=== PATIENT | male | born 1960 | race Caucasian/White ===

== ENCOUNTER 2019-12-07 12:11 | Emergency (ER) | payer BC, OTHER ==
[2019-12-07 12:50] LABS: Absolute Lymphocytes (CBC) 2.4 K/uL (0.7-4.9); Basophils % 1.3 % (0-1.3); Hematocrit 45.8 % (39.6-49.0); Lymphocytes % 24.7 % (15.3-44.8); MPV 9.5 fL (7.6-11.3); RBC Red Blood Cell Count 5.57 M/uL (4.33-5.43)
[2019-12-07 13:19] LABS: Albumin 3.7 g/dL (3.4-5.0); Bilirubin Total 0.7 mg/dL (0.2-1.0); Potassium 3.9 mmol/L (3.5-5.1); Protein, Total 7.8 g/dL (6.4-8.2)
--- NOTE | 2019-12-07 13:28 | EDPHYS ---
Physician Documentation [facility] Name: Robbi Mloina Age: 59 yrs Sex: Male : 1960 Arrival Date: 12/07/2019 Time: 12:16 Bed 24 Private MD: ED Physician Hans Srivastava HPI: 12/07 12:33 This 59 yrs old Male presents to ER via Ambulatory with complaints of Blood ps1 Pressure Problem. 12:[address] Santiago. Patient has not taken his BP/DM meds for a long time. Could not ps1 get an appointment after taking home BP >200 systolic. Sent to ED for unscheduled care. No symptoms. Needs a refill. . Historical: - Allergies: 12:21 No Known Allergies; ll1 - Home Meds: 12:55 aspirin 81 mg Oral TbEC 1 tab once daily [Active]; rosuvastatin 5 mg oral tab 1 tab ss twice a day [Active]; - PMHx: 12:21 Hypertension; ll1 - PSHx: 12:21 Hernia repair; Cholecystectomy; ll1 - Immunization history:: Adult Immunizations up to date, Last tetanus immunization: up to date. - Social history:: Smoking status: Patient denies any tobacco usage or history of. ROS: 12:33 Constitutional: Negative for fever, chills, and weight loss, Cardiovascular: Negative ps1 for chest pain, palpitations, and edema, Respiratory: Negative for shortness of breath, cough, wheezing, and pleuritic chest pain, Abdomen/GI: Negative for abdominal pain, nausea, vomiting, diarrhea, and constipation, MS/Extremity: Negative for injury and deformity, Neuro: Negative for headache, weakness, numbness, tingling, and seizure. Exam: 12:33 Constitutional: This is a well developed, well nourished patient who is awake, alert, ps1 and in no acute distress. Head/Face: Normocephalic, atraumatic. Eyes: Pupils equal round and reactive to light, extra-ocular motions intact. Lids and lashes normal. Conjunctiva and sclera are non-icteric and not injected. Chest/axilla: Normal chest wall appearance and motion. Nontender with no deformity. No lesions are appreciated. Cardiovascular: Regular rate and rhythm. No gallops, murmurs, or rubs. Normal PMI, no JVD. No pulse deficits. Respiratory: Lungs have equal breath sounds bilaterally, clear to auscultation and percussion. No rales, rhonchi or wheezes noted. No increased work of breathing, no retractions or nasal flaring. MS/ Extremity: Pulses equal, no cyanosis. Neurovascular intact. Full, normal range of motion. Neuro: Awake and alert, GCS 15, oriented to person, place, time, and situation. Cranial nerves II-XII grossly intact. Sensory grossly intact. Psych: Awake, alert, with orientation to person, place and time. Behavior, mood, and affect are within normal limits. Vital Signs: 12:17 Pulse 78; Resp 17; Temp 98.3; Pulse Ox 99% ; Weight 112.94 kg; Height 6 ft. (182.88 ll1 cm); Pain 0/10; 12:21 BP 197 / 122; ll1 12:29 BP 194 / 108; Pulse 81; Pulse Ox 98% on R/A; vc 13:00 BP 180 / 102; Pulse 81; Pulse Ox 98% on R/A; vc 13:30 BP 190 / 101; Pulse 77; Resp 16; Temp 98.9(O); Pulse Ox 98% ; lt1 12:17 Body Mass Index 33.77 (112.94 kg, 182.88 cm) ll1 MDM: 12:36 Differential Diagnosis Uncontrolled HTN. Uncontrolled DM. Medication refill. Kidney ps1 dysfunction and others. Data reviewed: vital signs, nurses notes, and as a result, I will discharge patient. ED course: 59 y/o M presenting with asymptomatic HTN. BP 197/122. Basic labs for evaluation of metabolic panel for renal dysfunction. Restart medications. Follow up with Pamela for medical management. . 12:38 Patient medically screened. ps1 12/07 12:23 Order name: CBC with Diff; Complete Time: 12:58 ps1 12/07 12:23 Order name: CMP; Complete Time: 13:25 ps1 12/07 13:25 Interpretation: Abnormal: GLUC 395; CRE 1.34; GFR 55. ps1 Administered Medications: No medications were administered Disposition: 12/07/19 13:27 Discharged to Home. Impression: Uncontrolled Hypertension, Hyperglycemia, unspecified, Chronic kidney disease (CKD). - Condition is Stable. - Discharge Instructions: Hyperglycemia, Hypertension, Blood Glucose Monitoring, Adult, Chronic Kidney Disease, Adult. - Prescriptions for Tradjenta 5 mg Oral tablet - take 1 tablet by ORAL route once daily; 30 tablet. rosuvastatin 5 mg Oral tablet - take 1 tablet by ORAL route once daily; 30 tablet. Lisinopril 20 mg Oral Tablet - take 1 tablet by ORAL route once daily; 30 tablet. Glimepiride 4 mg Oral Tablet - take 1 tablet by ORAL route twice a day with meals; 60 tablet. - Medication Reconciliation Form, Thank You Letter, Antibiotic Education, Prescription Opioid Use form. - Follow up: Ashley Santiago MD; When: 48 Hours; Reason: Further diagnostic work-up, Recheck today's complaints, Continuance of care, Re-evaluation by your physician. Follow up: Emergency Department; When: As needed; Reason: Trouble breathing, Worsening of condition. - Problem is an ongoing problem. - Symptoms have worsened. Signatures: Dispatcher [employer] EDMS Rahel Mendoza RN RN ss Hans Srivastava MD MD ps1 Kristi Werner RN RN vc Ravi Rajan RN RN ll1 Corrections: (The following items were deleted from the chart) 13:41 13:27 12/07/2019 13:27 Discharged to Home. Impression: Uncontrolled vc HypertensionHyperglycemia, unspecified; Chronic kidney disease (CKD). Condition is Stable. Forms are Medication Reconciliation Form, Thank You Letter, Antibiotic Education, Prescription Opioid Use. Follow up: Ashley Santiago; When: 48 Hours; Reason: Further diagnostic work-up, Recheck today's complaints, Continuance of care, Re-evaluation by your physician. Follow up: Emergency Department; When: As needed; Reason: Trouble breathing, Worsening of condition. Problem is an ongoing problem. Symptoms have worsened. ps1
--- NOTE | 2019-12-07 13:28 | ER ---
Nurse's Notes [facility] Name: Robbi Molina Age: 59 yrs Sex: Male : 1960 Arrival Date: 12/07/2019 Time: 12:16 Bed 24 Private MD: Diagnosis: Hyperglycemia, unspecified;Chronic kidney disease (CKD);Uncontrolled Hypertension Presentation: 12/07 12:17 Chief complaint: Patient states: BP was 200/136 [employer] Dr. Santiago sent him in for eval. No ll1 BP pills since May. Slight blurred vision at times. Coronavirus screen: The patient has NOT had contact with known and/or suspected case of Coronavirus. Proceed with normal triage procedures. Ebola Screen: No symptoms or risks identified at this time. Initial Sepsis Screen: Does the patient meet any 2 criteria? No. Patient's initial sepsis screen is negative. Does the patient have a suspected source of infection? No. Patient's initial sepsis screen is negative. Risk Assessment: Do you want to hurt yourself or someone else? Patient reports no desire to harm self or others. 12:17 Method Of Arrival: Ambulatory ll1 12:17 Acuity: STAS 3 ll1 12:45 Onset of symptoms is unknown. vc Historical: - Allergies: 12:21 No Known Allergies; ll1 - Home Meds: 12:55 aspirin 81 mg Oral TbEC 1 tab once daily [Active]; rosuvastatin 5 mg oral tab 1 tab ss twice a day [Active]; - PMHx: 12:21 Hypertension; ll1 - PSHx: 12:21 Hernia repair; Cholecystectomy; ll1 - Immunization history:: Adult Immunizations up to date, Last tetanus immunization: up to date. - Social history:: Smoking status: Patient denies any tobacco usage or history of. Screenin:45 Abuse screen: Denies threats or abuse. Nutritional screening: No deficits noted. vc Tuberculosis screening: No symptoms or risk factors identified. Fall Risk None identified. Assessment: 12:30 General: Appears in no apparent distress. comfortable, Behavior is calm, cooperative, vc appropriate for age. Pain: Denies pain. Neuro: Level of Consciousness is awake, alert, obeys commands, Oriented to person, place, time, situation, Appropriate for age. Cardiovascular: Patient's skin is warm and dry. Respiratory: Airway is patent Respiratory effort is even, unlabored, Respiratory pattern is regular, symmetrical. GI: No signs and/or symptoms were reported involving the gastrointestinal system. GI: Abdomen is round non-distended. : No signs and/or symptoms were reported regarding the genitourinary system. EENT: No deficits noted. Derm: Skin is intact, is healthy with good turgor, Skin temperature is warm. Musculoskeletal: Circulation, motion, and sensation intact. Range of motion: intact in all extremities. 13:15 Reassessment: Patient and/or family updated on plan of care and expected duration. Pain vc level reassessed. Patient is alert, oriented x 3, equal unlabored respirations, skin warm/dry/pink. Patient denies pain at this time. 13:41 Reassessment: Patient and/or family updated on plan of care and expected duration. Pain vc level reassessed. Patient is alert, oriented x 3, equal unlabored respirations, skin warm/dry/pink. Patient denies pain at this time. Vital Signs: 12:17 Pulse 78; Resp 17; Temp 98.3; Pulse Ox 99% ; Weight 112.94 kg; Height 6 ft. (182.88 ll1 cm); Pain 0/10; 12:21 BP 197 / 122; ll1 12:29 BP 194 / 108; Pulse 81; Pulse Ox 98% on R/A; vc 13:00 BP 180 / 102; Pulse 81; Pulse Ox 98% on R/A; vc 13:30 BP 190 / 101; Pulse 77; Resp 16; Temp 98.9(O); Pulse Ox 98% ; lt1 12:17 Body Mass Index 33.77 (112.94 kg, 182.88 cm) ll1 ED Course: 12:16 Patient arrived in ED. fj1 12:19 Triage completed. ll1 12:21 Hans Srivastava MD is Attending Physician. ps1 12:21 Arm band placed on right wrist. ll1 12:25 Kristi Werner RN is Primary Nurse. vc 12:30 Patient has correct armband on for positive identification. Placed in gown. Bed in low vc position. Call light in reach. Pulse ox on. NIBP on. 12:30 Inserted saline lock: 20 gauge in right forearm, using aseptic technique. Blood vc collected. 12:41 CMP Sent. vc 12:41 CBC with Diff Sent. vc 13:27 Ashlye Santiago MD is Referral Physician. ps1 13:40 No provider procedures requiring assistance completed. IV discontinued, intact, vc bleeding controlled, No redness/swelling at site. Pressure dressing applied. Administered Medications: No medications were administered Outcome: 13: Discharge ordered by MD. ps1 13:40 Discharged to home ambulatory. vc 13:40 Condition: good 13:40 Discharge instructions given to patient, Instructed on discharge instructions, follow up and referral plans. medication usage, Demonstrated understanding of instructions, follow-up care, medications, Prescriptions given X 4. 13:41 Patient left the ED. vc Signatures: Rahel Mendoza, RN RN Hans Catherine MD MD ps1 Fabi Jung lt1 Kristi Werner RN RN Jens Light fj1 Ravi Rajan RN RN ll1
[2019-12-07 13:50] VITALS: O2SAT 98
[2019-12-07 13:52] VITALS: BP 190/101; TEMP 98.9
== END 2019-12-07 13:41 | disposition home or self-care (01) ==
LOC: ER 12:11
DX: I12.9 Hypertensive chronic kidney disease with stage 1 through stage 4 chronic kidney disease, or unspecified chronic kidney disease (principal); E11.65 Type 2 diabetes mellitus with hyperglycemia; E11.22 Type 2 diabetes mellitus with diabetic chronic kidney disease; N18.9 Chronic kidney disease, unspecified
CPT/HCPCS: 36415; 80053; 85025; 99284